=== PATIENT | male | born 1945 | race Caucasian/White ===

== ENCOUNTER 2018-07-16 03:20 | Inpatient (IN) | payer MEDICARE, OTHER ==
[~2018-07-16] VITALS: Ht 167.6 cm; Wt 99.7 kg
[2018-07-16] MEDS ORDERED: ASPI-496 PO (03:39)
[2018-07-16] MEDS ORDERED: METO-93 PO (03:41)
[2018-07-16] MEDS ORDERED: ATOR-2 PO (03:42)
[2018-07-16 04:07] LABS: BASOPHILS # (AUTO) 0.04 x10^3/uL (0-0.1); BASOPHILS % (AUTO) 1 % (0-1); EOSINOPHILS # (AUTO) 0.32 x10^3/uL (0-0.4); EOSINOPHILS % (AUTO) 5 % (1-7); LYMPHOCYTES # (AUTO) 2.46 x10^3/uL (1-3.4); LYMPHOCYTES % (AUTO) 36 % (22-44); MD NO; MEAN CORPUSCULAR HEMOGLOBIN 30.4 pg (27.5-34.5); MEAN CORPUSCULAR HGB CONC 33.5 g/dL (33.2-36.2); MEAN CORPUSCULAR VOLUME 90.8 fL (81-97); MEAN PLATELET VOLUME 8.8 fL (7.4-10.4); MONOCYTES # (AUTO) 0.76 x10^3/uL (0.2-0.8); MONOCYTES % (AUTO) 11 % (2-9); NEUTROPHILS # (AUTO) 3.28 x10^3/uL (1.8-6.8); NEUTROPHILS % (AUTO) 48 % (42-75); PLATELET COUNT 209 x10^3/uL (130-400); RED BLOOD COUNT 4.76 x10^6/uL (4.38-5.82); RED CELL DISTRIBUTION WIDTH 14.7 % (9.4-14.8)
[2018-07-16 04:20] LABS: ALANINE AMINOTRANSFERASE 23 U/L (12-78); ANION GAP 6 mmol/L (5-15); CALCIUM 8.4 mg/dL (8.5-10.1); CHLORIDE 110 mmol/L (98-107); CREATININE 1.17 mg/dL (0.7-1.3)
[2018-07-16 04:25] LABS: ALKALINE PHOSPHATASE 81 U/L (45-117); BILIRUBIN,TOTAL 0.4 mg/dL (0.2-1.0); TOTAL PROTEIN 6.2 g/dL (6.4-8.2); TROPONIN I < 0.015 ng/mL (0.000-0.045)
[2018-07-16] MEDS ORDERED: ONDANSETRON 2MG/ML, 2ML IVPush PRN (05:00)
[2018-07-16] MEDS ORDERED: MORPHINE SULFATE 4 MG/ML, 1ML IVPush PRN (05:00)
[2018-07-16 05:30] VITALS: BP 152/82
[2018-07-16] MEDS ORDERED: NITROGLYCERIN 0.4 MG BOTTLE (25 TABS) SL PRN (05:30)
[2018-07-16] MEDS ORDERED: NITROGLYCERIN 0.4 MG/SPRAY SL PRN (05:30)
[2018-07-16] MEDS ORDERED: BISACODYL 10 MG SUPP PR PRN (05:30)
[2018-07-16] MEDS ORDERED: LABETALOL 5MG/ML, 20ML IVPush PRN (05:30)
[2018-07-16] MEDS ORDERED: ENOXAPARIN 40 MG/0.4 ML SQ SCH (05:30)
[2018-07-16] MEDS ORDERED: morphine SULFATE 10 MG/ML, 1ML IV PRN (05:30)
[2018-07-16] MEDS ORDERED: ACETAMINOPHEN 325 MG TABLET PO PRN (05:30)
[2018-07-16] MEDS ORDERED: morphine SULFATE 10 MG/ML, 1ML IVPush PRN (05:30)
[2018-07-16] MEDS ORDERED: HYDR25TA11 PO (05:39)
[2018-07-16 05:40] VITALS: BP 152/82
[2018-07-16 07:00] LABS: CHOL/HDL RATIO 2.9; LDL/HDL RATIO 1.3 (0.5-3.0)
[2018-07-16 07:43] LABS: TROPONIN I < 0.015 ng/mL (0.000-0.045)
[2018-07-16 08:46] VITALS: BP 133/75
[2018-07-16] MEDS ORDERED: SODIUM CHLORIDE FLUSH 10ML SYR IVF SCH (09:00)
[2018-07-16] MEDS ORDERED: METOPROLOL SUCCINATE 50 MG TAB.ER.24H PO SCH (09:00)
[2018-07-16 10:26] LABS: TROPONIN I < 0.015 ng/mL (0.000-0.045)
[2018-07-16] MEDS ORDERED: REGADENOSON 0.4 MG/5 ML SYRINGE ONE (12:45)
[2018-07-16 15:00] VITALS: BP 138/76
[2018-07-16 20:52] VITALS: BP 121/81
[2018-07-16] MEDS ORDERED: ATORVASTATIN 80 MG TABLET PO SCH (21:00)
[2018-07-17] MEDS ORDERED: ASPIRIN 325 MG TABLET EC PO SCH (06:00)
== END 2018-07-16 23:07 | disposition home or self-care (01) | DRG 305 ==
LOC: ED 04:55 → EDIP 05:01 → 5SO 05:42
PROVIDERS: ADMIT Internal Medicine; ATTEND Internal Medicine
DX: I16.9 Hypertensive crisis, unspecified (principal); R07.9 Chest pain, unspecified; I10 Essential (primary) hypertension; E66.01 Morbid (severe) obesity due to excess calories; E78.5 Hyperlipidemia, unspecified; R61 Generalized hyperhidrosis; E78.00 Pure hypercholesterolemia, unspecified; K21.9 Gastro-esophageal reflux disease without esophagitis; G47.33 Obstructive sleep apnea (adult) (pediatric); Z68.35 Body mass index [BMI] 35.0-35.9, adult; Z82.49 Family history of ischemic heart disease and other diseases of the circulatory system; Z87.891 Personal history of nicotine dependence
CPT/HCPCS: 36415; 71045; 78452; 80053; 80061; 83880; 84484; 85025; 93005; 93017; 99285; G0378; J1650; J2785; A9502; C9898

== ENCOUNTER → 2018-09-25 | Outpatient (CLI) | payer MEDICARE, OTHER ==
[~2018-09-25] MED LIST: ASPI-496 PO; ATOR-2 PO; HYDR25TA11 PO; METO-93 PO
[2018-09-25 16:21] LABS: ANION GAP 6 mmol/L (5-15); CHLORIDE 107 mmol/L (98-107); CREATININE 1.35 mg/dL (0.7-1.3)
== END | disposition home or self-care (01) ==
LOC: CFH 14:52
PROVIDERS: ATTEND Internal Medicine Cardiovascular Disease
DX: I10 Essential (primary) hypertension (principal)
CPT/HCPCS: 36415; 80048

== ENCOUNTER → 2018-10-01 | Outpatient (CLI) | payer MEDICARE, OTHER | END | disposition home or self-care (01) | LOC: CFH 13:35 | PROVIDERS: ATTEND Internal Medicine Cardiovascular Disease | DX: I10 Essential (primary) hypertension (principal); E78.5 Hyperlipidemia, unspecified | CPT/HCPCS: 93306 ==

== ENCOUNTER 2020-08-17 17:31 | Observation (INO) | payer MEDICARE, OTHER ==
[~2020-08-17] VITALS: Ht 167.6 cm; Wt 97.8 kg
[~2020-08-17 17:31] MED LIST changes: +HYDR-826 PO; -HYDR25TA11 PO
--- NOTE | 2020-08-17 18:19 | NUR ---
INTERMITTENT SHARP CHEST PAIN FOR 5 DAYS, WORSE TODAY. ABDOMINAL PAIN AND SILVEIRA.
[2020-08-17] MEDS ORDERED: MAALOX/HYOSCYAMINE/LIDOCAINE 45 ML BTL ONE (18:20)
[2020-08-17] MEDS ORDERED: ONDANSETRON 2MG/ML, 2ML ONE (18:20)
[2020-08-17] MEDS ORDERED: FAMOTIDINE 20 MG/2 ML ONE (18:21)
--- NOTE | 2020-08-17 18:32 | NUR ---
AFTER MEDICATED NOTED ON SEP PT TO XRAY
[2020-08-17 18:39] LABS: BASOPHILS % (AUTO) 1 % (0-1); EOSINOPHILS % (AUTO) 1 % (1-7); LYMPHOCYTES % (AUTO) 23 % (22-44); MEAN CORPUSCULAR HEMOGLOBIN 30.8 pg (27.5-34.5); MEAN PLATELET VOLUME 8.6 fL (7.4-10.4); MONOCYTES % (AUTO) 8 % (2-9); NEUTROPHILS % (AUTO) 68 % (42-75); PLATELET COUNT 271 x10^3/uL (130-400); RED BLOOD COUNT 4.87 x10^6/uL (4.38-5.82); RED CELL DISTRIBUTION WIDTH 13.7 % (9.4-14.8)
[2020-08-17 18:40] LABS: MD NO
[2020-08-17 18:50] LABS: ALBUMIN 3.6 g/dL (3.4-5.0); ANION GAP 8 mmol/L (5-15); CHLORIDE 100 mmol/L (98-107)
[2020-08-17 18:56] LABS: ALANINE AMINOTRANSFERASE 27 U/L (12-78); ALKALINE PHOSPHATASE 78 U/L (45-117); BILIRUBIN,TOTAL 0.5 mg/dL (0.2-1.0); TOTAL PROTEIN 7.2 g/dL (6.4-8.2); TROPONIN I < 0.015 ng/mL (0.000-0.045)
[2020-08-17] MEDS ORDERED: MAALOX/HYOSCYAMINE/LIDOCAINE 45 ML BTL PO ONE (19:00)
[2020-08-17] MEDS ORDERED: FAMOTIDINE 20 MG/2 ML IVPush ONE (19:00)
[2020-08-17] MEDS ORDERED: ONDANSETRON 2MG/ML, 2ML IVPush ONE (19:00)
--- NOTE | 2020-08-17 19:04 | NUR ---
REPORT RECIEVED FROM CAMILLA SRIVASTAVA. PT RESTING IN [facility], ALL MONITORS IN PLACE
[2020-08-17] MEDS ORDERED: MORPHINE SULFATE 4 MG/ML, 1ML ONE (19:16)
[2020-08-17] MEDS ORDERED: PANT20TA4 PO (19:30)
[2020-08-17] MEDS ORDERED: MORPHINE SULFATE 4 MG/ML, 1ML IVPush ONE (19:30)
[2020-08-17] MEDS ORDERED: ATOR-2 PO (19:30)
[2020-08-17] MEDS ORDERED: TOLT1TAB13 PO (19:30)
[2020-08-17] MEDS ORDERED: LISI-420 PO (19:30)
[2020-08-17] MEDS ORDERED: HYDR25TA6 PO (19:31)
[2020-08-17] MEDS ORDERED: ACETAMINOPHEN 325 MG TABLET ONE (20:17)
[2020-08-17] MEDS ORDERED: POTASSIUM CHLORIDE 20 MEQ TAB.ER.PRT ONE (20:17)
[2020-08-17] MEDS ORDERED: PROMETHAZINE 25 MG/ML, 1ML IM PRN (20:30)
[2020-08-17] MEDS ORDERED: ONDANSETRON 2MG/ML, 2ML IVPush PRN (20:30)
[2020-08-17] MEDS ORDERED: morphine SULFATE 10 MG/ML, 1ML IVPush PRN (20:30)
[2020-08-17] MEDS ORDERED: DOCUSATE 100 MG CAPSULE PO PRN (20:30)
[2020-08-17] MEDS ORDERED: OXYcodone IR 5MG TABLET PO PRN (20:30)
[2020-08-17] MEDS ORDERED: ACETAMINOPHEN 325 MG TABLET PO PRN (20:30)
[2020-08-17] MEDS ORDERED: POLYETHYLENE GLYCOL 17 GM PACKET PO PRN (20:30)
[2020-08-17] MEDS ORDERED: NITROGLYCERIN 0.4 MG BOTTLE (25 TABS) SL PRN (20:30)
[2020-08-17] MEDS ORDERED: POTASSIUM CHLORIDE 20 MEQ TAB.ER.PRT PO ONE (20:30)
[2020-08-17] MEDS ORDERED: ONDANSETRON ODT 4 MG PO PRN (20:30)
[2020-08-17] MEDS ORDERED: BISACODYL 10 MG SUPP PR PRN (20:30)
[2020-08-17] MEDS ORDERED: hydrALAzine 20 MG/ML, 1ML IVPush PRN (20:30)
[2020-08-17] MEDS ORDERED: LISINOPRIL 20 MG TABLET PO SCH (21:00)
--- NOTE | 2020-08-17 21:03 | NUR ---
REPORT GIVEN TO CAMILLA RAMIREZ
[2020-08-17] MEDS: PANTOPRAZOLE 40MG TABLET PO SCH (22:29)
[2020-08-17] MEDS: HEPARIN 5,000 UNITS/ML, 1ML SQ SCH (22:30)
[2020-08-17] MEDS: HYDROCHLOROTHIAZIDE 25 MG TABLET PO SCH (22:30)
[2020-08-17] MEDS: TOLTERODINE 2MG TABLET PO SCH (22:30)
[2020-08-18 00:05] LABS: TROPONIN I < 0.015 ng/mL (0.000-0.045)
[2020-08-18 00:44] VITALS: BP 147/82
[2020-08-18 02:22] LABS: BASOPHILS % (AUTO) 1 % (0-1); EOSINOPHILS % (AUTO) 2 % (1-7); LYMPHOCYTES % (AUTO) 34 % (22-44); MEAN CORPUSCULAR HEMOGLOBIN 30.3 pg (27.5-34.5); MEAN CORPUSCULAR HGB CONC 33.6 g/dL (33.2-36.2); MEAN PLATELET VOLUME 8.3 fL (7.4-10.4); MONOCYTES % (AUTO) 9 % (2-9); NEUTROPHILS % (AUTO) 55 % (42-75); PLATELET COUNT 259 x10^3/uL (130-400); RED BLOOD COUNT 4.68 x10^6/uL (4.38-5.82); RED CELL DISTRIBUTION WIDTH 13.7 % (9.4-14.8)
[2020-08-18 02:23] LABS: MD NO
[2020-08-18 02:30] LABS: ALANINE AMINOTRANSFERASE 24 U/L (12-78); ALBUMIN 3.3 g/dL (3.4-5.0); ANION GAP 5 mmol/L (5-15); CALCIUM 8.8 mg/dL (8.5-10.1); CHLORIDE 101 mmol/L (98-107); CREATININE 1.16 mg/dL (0.7-1.3)
[2020-08-18 02:35] LABS: TROPONIN I < 0.015 ng/mL (0.000-0.045)
[2020-08-18 02:39] LABS: ALKALINE PHOSPHATASE 64 U/L (45-117); BILIRUBIN,TOTAL 0.6 mg/dL (0.2-1.0); CHOL/HDL RATIO 2.8; CHOLESTEROL, TOTAL 115 mg/dL (140-239); HDL CHOL % 36 % (26-37); HDL CHOLESTEROL (DIRECT) 41 mg/dL (40-60); LDL CHOLESTEROL,CALCULATED 61 mg/dL (54-169); LDL/HDL RATIO 1.5 (0.5-3.0); TOTAL PROTEIN 6.7 g/dL (6.4-8.2); TRIGLYCERIDES 66 mg/dL (50-200); VLDL CHOLESTEROL 13 mg/dL (0-25)
[2020-08-18] MEDS ORDERED: SODIUM CHLORIDE 0.9% 1,000 ML IV SCH (05:00)
[2020-08-18] MEDS ORDERED: ASPIRIN 325 MG TABLET EC PO SCH (06:00)
[2020-08-18] MEDS: HEPARIN 5,000 UNITS/ML, 1ML SQ SCH ×2 (06:37→14:48)
[2020-08-18 08:06] VITALS: BP 130/72
[2020-08-18] MEDS: HYDROCHLOROTHIAZIDE 25 MG TABLET PO SCH (08:19)
[2020-08-18] MEDS: PANTOPRAZOLE 40MG TABLET PO SCH (08:19)
[2020-08-18] MEDS ORDERED: REGADENOSON 0.4 MG/5 ML SYRINGE ONE (08:21)
[2020-08-18] MEDS ORDERED: METOPROLOL SUCCINATE 50 MG TAB.ER.24H PO SCH (09:00)
[2020-08-18] MEDS ORDERED: ATORVASTATIN 80 MG TABLET PO SCH (09:00)
[2020-08-18] MEDS: TOLTERODINE 2MG TABLET PO SCH (11:37)
[2020-08-18 13:58] VITALS: BP 128/75
[2020-08-18] MEDS ORDERED: MAGNESIUM HYDROXIDE 8%, 30ML UDC PO SCH (14:30)
[2020-08-18] MEDS ORDERED: SENN-211 PO (14:54)
[2020-08-18] MEDS ORDERED: SENNA/DOCUSATE TABLET PO SCH (21:00)
== END 2020-08-18 16:00 | disposition home or self-care (01) ==
LOC: ED 18:34 → EDIP 20:05 → 5SO 21:13 → DCLOUNGE 08-18 15:49
PROVIDERS: ADMIT Internal Medicine; ATTEND Hospitalist
DX: R07.89 Other chest pain (principal); K21.9 Gastro-esophageal reflux disease without esophagitis; I10 Essential (primary) hypertension; E78.5 Hyperlipidemia, unspecified; G47.33 Obstructive sleep apnea (adult) (pediatric); R10.9 Unspecified abdominal pain; I34.0 Nonrheumatic mitral (valve) insufficiency; K59.00 Constipation, unspecified; K76.89 Other specified diseases of liver; N28.1 Cyst of kidney, acquired; Z79.82 Long term (current) use of aspirin; Z79.899 Other long term (current) drug therapy; Z87.891 Personal history of nicotine dependence; Z91.19 Patient's noncompliance with other medical treatment and regimen
CPT/HCPCS: 36415; 74022; 74176; 78452; 80053; 80061; 83036; 83735; 84443; 84484; 85025; 93005; 93017; 93306; 96361; 96372; 96374; 96375; 99285; A9502; G0378; J1644; J2270; J2405; J2785; J7030; Q0177; 93015

== ENCOUNTER 2021-03-02 12:04 | Inpatient (IN) | payer MEDICARE, OTHER ==
[~2021-03-02] VITALS: Ht 167.6 cm; Wt 89.5 kg
[~2021-03-02 12:04] MED LIST changes: +HYDR25TA6 PO; +LISI20TA21 PO; +PANT20TA4 PO; +SENN-211 PO; +TOLT1TAB13 PO
--- NOTE | 2021-03-02 12:11 | NUR ---
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
--- NOTE | 2021-03-02 12:43 | NUR ---
PT WITH COMPLAINTS OF: SENT BY SHERI VELARDE DUE TO INCREASE ANXIETY AND CONFUSION PLACEMENT ISSUES PASSED RECENTLY VACCINATED FOR COVID-19 PT WITH STEADY GAIT TO BED. SON AT BEDSIDE. SON EXPRESSES CONCERNS OF FATHERS WELL BEING AND RECENT DECLINE OF FATHERS MENTION AND INCREASE IN AGIATION AND ANXIETY. PT POSTIONED TO COMFORT, ATTACHED TO MONITORS. VSS. RYAN.
--- NOTE | 2021-03-02 13:10 | NUR ---
DR. LESLIE TO BEDSIDE.
[2021-03-02 13:42] LABS: MICROSCOPIC INDICATED
--- NOTE | 2021-03-02 13:43 | NUR ---
PT BACK FROM CT. VSS. RYAN
--- NOTE | 2021-03-02 13:59 | NUR ---
PREMA MANTILLA FERRY PILOT TO BEDSIDE FOR EVALUATION.
[2021-03-02 14:06] LABS: BASOPHILS % (AUTO) 1 % (0-1); EOSINOPHILS % (AUTO) 0 % (1-7); LYMPHOCYTES % (AUTO) 16 % (22-44); MEAN CORPUSCULAR HEMOGLOBIN 30.4 pg (27.5-34.5); MEAN CORPUSCULAR HGB CONC 35.5 g/dL (33.2-36.2); MEAN PLATELET VOLUME 7.8 fL (7.4-10.4); MONOCYTES % (AUTO) 9 % (2-9); NEUTROPHILS % (AUTO) 75 % (42-75); PLATELET COUNT 283 x10^3/uL (130-400); RED BLOOD COUNT 4.75 x10^6/uL (4.38-5.82); RED CELL DISTRIBUTION WIDTH 14.1 % (9.4-14.8)
[2021-03-02 14:14] LABS: ALANINE AMINOTRANSFERASE 81 U/L (12-78); ALBUMIN 3.6 g/dL (3.4-5.0); CALCIUM 9.6 mg/dL (8.5-10.1)
[2021-03-02 14:17] LABS: ALKALINE PHOSPHATASE 80 U/L (45-117); BILIRUBIN,TOTAL 1.3 mg/dL (0.2-1.0); CREATININE 1.13 mg/dL (0.7-1.3); TOTAL PROTEIN 7.1 g/dL (6.4-8.2)
[2021-03-02 14:21] LABS: ANION GAP 9 mmol/L (5-15); CHLORIDE 76 mmol/L (98-107)
[2021-03-02] MEDS ORDERED: POTASSIUM CHLORIDE 20 MEQ TAB.ER.PRT PO ONE (15:00)
[2021-03-02] MEDS ORDERED: SODIUM CHLORIDE 0.9% 1,000 ML IV ONE ×2 (15:00→15:30)
--- NOTE | 2021-03-02 15:06 | NUR ---
DR. HARDY TO BEDSIDE FOR EVALUATION
[2021-03-02] MEDS ORDERED: POTASSIUM CHLORIDE 20 MEQ TAB.ER.PRT ONE (15:14)
[2021-03-02] MEDS: BUSPIRONE 5 MG TABLET PO SCH ×2 (15:23→20:53)
[2021-03-02] MEDS ORDERED: SODIUM CHLORIDE FLUSH 10ML SYR IVF PRN (15:30)
[2021-03-02] MEDS ORDERED: LORazepam 0.5MG TABLET PO PRN (15:30)
[2021-03-02] MEDS ORDERED: NS + 20MEQ KCL 1,000 ML IV SCH (16:00)
[2021-03-02] MEDS ORDERED: hydrALAzine 20 MG/ML, 1ML IVPush PRN (16:00)
--- NOTE | 2021-03-02 16:00 | NUR ---
REPORT CALLED TO TARA CARL PT RESTING IN BED WITH SEZIURES Addendum: 03/02/21 at 1604 by MAGDA REPORT CALLED TO TRAA CARL PT RESTING IN BED WITH SEZIURES PRECAUTIONS IN PLACE
[2021-03-02 16:17] LABS: ANION GAP 11 mmol/L (5-15); CALCIUM 8.9 mg/dL (8.5-10.1); CHLORIDE 78 mmol/L (98-107); CREATININE 1.07 mg/dL (0.7-1.3)
[2021-03-02 17:19] VITALS: BP 164/66
[2021-03-02] MEDS ORDERED: ALPR0.5T PO (17:32)
[2021-03-02] MEDS ORDERED: BUSP7.5T5 PO (17:32)
[2021-03-02] MEDS ORDERED: AMLO-211 PO (17:32)
[2021-03-02] MEDS: ENOXAPARIN 40 MG/0.4 ML SQ SCH (17:39)
[2021-03-02] MEDS: PANTOPRAZOLE 40 MG IV IVPush SCH (17:39)
[2021-03-02] MEDS ORDERED: METOPROLOL TARTRATE 50 MG TAB PO SCH (18:00)
[2021-03-02] MEDS: ACETAMINOPHEN 325 MG TABLET PO PRN ×2 (19:39→23:24)
[2021-03-02] MEDS: NS + 20MEQ KCL 1,000 ML IV SCH (19:39)
[2021-03-02 20:19] LABS: ANION GAP 10 mmol/L (5-15); CALCIUM 8.9 mg/dL (8.5-10.1); CHLORIDE 79 mmol/L (98-107); CREATININE 0.98 mg/dL (0.7-1.3)
[2021-03-02] MEDS: ATORVASTATIN 80 MG TABLET PO SCH (20:53)
[2021-03-02] MEDS: TOLTERODINE 2MG TABLET PO SCH (20:53)
[2021-03-03 00:46] LABS: CHLORIDE 83 mmol/L (98-107)
[2021-03-03 00:50] LABS: ANION GAP 11 mmol/L (5-15); CALCIUM 9.2 mg/dL (8.5-10.1); CREATININE 1.12 mg/dL (0.7-1.3)
[2021-03-03] MEDS: NS + 20MEQ KCL 1,000 ML IV SCH (01:00)
[2021-03-03] MEDS ORDERED: POTASSIUM CHLORIDE 20 MEQ TAB.ER.PRT ONE (01:08)
[2021-03-03] MEDS ORDERED: POTASSIUM CHLORIDE 20 MEQ TAB.ER.PRT PO ONE ×2 (01:30→13:00)
[2021-03-03 04:46] LABS: BASOPHILS % (AUTO) 0 % (0-1); EOSINOPHILS % (AUTO) 1 % (1-7); LYMPHOCYTES % (AUTO) 35 % (22-44); MEAN CORPUSCULAR HEMOGLOBIN 30.8 pg (27.5-34.5); MEAN CORPUSCULAR HGB CONC 35.6 g/dL (33.2-36.2); MEAN PLATELET VOLUME 8.3 fL (7.4-10.4); MONOCYTES % (AUTO) 13 % (2-9); NEUTROPHILS % (AUTO) 51 % (42-75); PLATELET COUNT 267 x10^3/uL (130-400); RED BLOOD COUNT 4.85 x10^6/uL (4.38-5.82); RED CELL DISTRIBUTION WIDTH 14.2 % (9.4-14.8)
[2021-03-03 04:51] LABS: ALANINE AMINOTRANSFERASE 89 U/L (12-78); ALBUMIN 3.2 g/dL (3.4-5.0); ANION GAP 9 mmol/L (5-15); CALCIUM 9.2 mg/dL (8.5-10.1); CHLORIDE 85 mmol/L (98-107)
[2021-03-03 04:53] LABS: ALKALINE PHOSPHATASE 73 U/L (45-117); BILIRUBIN,TOTAL 1.1 mg/dL (0.2-1.0); CREATININE 1.04 mg/dL (0.7-1.3); TOTAL PROTEIN 6.6 g/dL (6.4-8.2)
[2021-03-03 08:02] LABS: ANION GAP 10 mmol/L (5-15); CALCIUM 8.9 mg/dL (8.5-10.1); CHLORIDE 88 mmol/L (98-107); CREATININE 0.97 mg/dL (0.7-1.3)
[2021-03-03] MEDS: BUSPIRONE 5 MG TABLET PO SCH ×3 (09:19→21:09)
[2021-03-03] MEDS: SENNA/DOCUSATE TABLET PO SCH (09:19)
[2021-03-03] MEDS: LISINOPRIL 20 MG TABLET PO SCH (09:19)
[2021-03-03] MEDS: AMLODIPINE 10 MG TAB PO SCH (09:19)
[2021-03-03] MEDS: ASPIRIN 81 MG TABLET CHEW PO SCH (09:19)
[2021-03-03] MEDS: PANTOPRAZOLE 40 MG IV IVPush SCH (09:20)
[2021-03-03] MEDS: TOLTERODINE 2MG TABLET PO SCH ×2 (09:21→21:09)
[2021-03-03] MEDS: ONDANSETRON 2MG/ML, 2ML IVPush PRN (10:28)
[2021-03-03 11:52] LABS: ANION GAP 7 mmol/L (5-15); CALCIUM 8.7 mg/dL (8.5-10.1); CHLORIDE 90 mmol/L (98-107); CREATININE 1.03 mg/dL (0.7-1.3)
[2021-03-03] MEDS ORDERED: POLYETHYLENE GLYCOL 17 GM PACKET PO PRN (15:00)
[2021-03-03 15:29] LABS: CALCIUM 9.1 mg/dL (8.5-10.1); CHLORIDE 87 mmol/L (98-107)
[2021-03-03 15:30] LABS: CREATININE 1.16 mg/dL (0.7-1.3)
[2021-03-03 15:37] LABS: ANION GAP 9 mmol/L (5-15)
[2021-03-03] MEDS ORDERED: NS + 20MEQ KCL 1,000 ML IV SCH (16:00)
[2021-03-03] MEDS: ENOXAPARIN 40 MG/0.4 ML SQ SCH (17:24)
[2021-03-03 19:33] LABS: ANION GAP 9 mmol/L (5-15); CALCIUM 8.6 mg/dL (8.5-10.1); CHLORIDE 89 mmol/L (98-107); CREATININE 0.99 mg/dL (0.7-1.3)
[2021-03-03] MEDS: ACETAMINOPHEN 325 MG TABLET PO PRN (19:36)
[2021-03-03 19:59] VITALS: BP 124/74
[2021-03-03] MEDS: ATORVASTATIN 80 MG TABLET PO SCH (21:09)
[2021-03-03 21:56] LABS: CHLORIDE 88 mmol/L (98-107)
[2021-03-03 21:57] LABS: ANION GAP 10 mmol/L (5-15); CALCIUM 8.8 mg/dL (8.5-10.1); CREATININE 1.05 mg/dL (0.7-1.3)
[2021-03-04 00:30] VITALS: BP 130/73
[2021-03-04] MEDS: NS + 20MEQ KCL 1,000 ML IV SCH (01:06)
[2021-03-04] MEDS: ACETAMINOPHEN 325 MG TABLET PO PRN ×2 (06:12→18:24)
[2021-03-04 06:37] LABS: ANION GAP 6 mmol/L (5-15); CHLORIDE 93 mmol/L (98-107); CREATININE 0.96 mg/dL (0.7-1.3)
[2021-03-04 06:50] VITALS: BP 130/75
[2021-03-04] MEDS: SENNA/DOCUSATE TABLET PO SCH (08:13)
[2021-03-04] MEDS: BUSPIRONE 5 MG TABLET PO SCH ×3 (08:13→20:37)
[2021-03-04] MEDS: ASPIRIN 81 MG TABLET CHEW PO SCH (08:13)
[2021-03-04] MEDS: PANTOPRAZOLE 40 MG IV IVPush SCH (08:14)
[2021-03-04] MEDS: AMLODIPINE 10 MG TAB PO SCH (08:14)
[2021-03-04] MEDS: LISINOPRIL 20 MG TABLET PO SCH (08:14)
[2021-03-04] MEDS: TOLTERODINE 2MG TABLET PO SCH ×2 (08:17→20:37)
[2021-03-04] MEDS: ONDANSETRON 2MG/ML, 2ML IVPush PRN ×2 (08:17→16:17)
[2021-03-04] MEDS ORDERED: SODIUM BICARBONATE 650 MG TABLET PO SCH (09:00)
[2021-03-04] MEDS: POLYETHYLENE GLYCOL 17 GM PACKET PO SCH ×2 (11:39→20:37)
[2021-03-04] MEDS: SODIUM CHLORIDE 1 GM TABLET PO SCH ×3 (13:30→20:37)
[2021-03-04 14:51] VITALS: BP 125/76
[2021-03-04] MEDS: PANTOPRAZOLE 40MG TABLET PO SCH (16:14)
[2021-03-04] MEDS: ENOXAPARIN 40 MG/0.4 ML SQ SCH (16:14)
[2021-03-04 18:20] VITALS: BP 122/73
[2021-03-04 19:56] VITALS: BP 107/72
[2021-03-04] MEDS: ATORVASTATIN 80 MG TABLET PO SCH (20:37)
[2021-03-04] MEDS: MELATONIN 5 MG TABLET PO PRN (21:05)
[2021-03-05] VITALS: BP 149/80
[2021-03-05] MEDS: ONDANSETRON 2MG/ML, 2ML IVPush PRN (05:49)
[2021-03-05] MEDS: PANTOPRAZOLE 40MG TABLET PO SCH (05:49)
[2021-03-05 05:56] LABS: ANION GAP 5 mmol/L (5-15); CALCIUM 8.3 mg/dL (8.5-10.1); CHLORIDE 99 mmol/L (98-107)
[2021-03-05 05:58] LABS: CREATININE 0.84 mg/dL (0.7-1.3)
[2021-03-05] MEDS: BUSPIRONE 5 MG TABLET PO SCH ×3 (08:26→20:11)
[2021-03-05] MEDS: SENNA/DOCUSATE TABLET PO SCH (08:26)
[2021-03-05] MEDS: TOLTERODINE 2MG TABLET PO SCH ×2 (08:26→20:11)
[2021-03-05] MEDS: LISINOPRIL 20 MG TABLET PO SCH (08:26)
[2021-03-05] MEDS: ASPIRIN 81 MG TABLET CHEW PO SCH (08:26)
[2021-03-05] MEDS: SODIUM CHLORIDE 1 GM TABLET PO SCH ×2 (08:26→20:11)
[2021-03-05] MEDS: AMLODIPINE 10 MG TAB PO SCH (08:26)
[2021-03-05] MEDS: POLYETHYLENE GLYCOL 17 GM PACKET PO SCH ×2 (08:26→20:11)
[2021-03-05 09:05] VITALS: BP 111/72
[2021-03-05] MEDS: ONDANSETRON ODT 4 MG PO SCH ×2 (11:08→16:20)
[2021-03-05 14:10] VITALS: BP 107/64
[2021-03-05] MEDS: ENOXAPARIN 40 MG/0.4 ML SQ SCH (16:20)
[2021-03-05 19:24] VITALS: BP 136/80
[2021-03-05] MEDS: ATORVASTATIN 80 MG TABLET PO SCH (20:11)
[2021-03-05] MEDS: MELATONIN 5 MG TABLET PO PRN (20:11)
[2021-03-06 01:39] VITALS: BP 148/84
[2021-03-06] MEDS: PANTOPRAZOLE 40MG TABLET PO SCH (05:27)
[2021-03-06 05:29] LABS: CHLORIDE 101 mmol/L (98-107)
[2021-03-06 05:34] LABS: ANION GAP 5 mmol/L (5-15); CALCIUM 8.7 mg/dL (8.5-10.1); CREATININE 0.89 mg/dL (0.7-1.3)
[2021-03-06 07:22] VITALS: BP 129/75
[2021-03-06] MEDS: ASPIRIN 81 MG TABLET CHEW PO SCH (08:16)
[2021-03-06] MEDS: LISINOPRIL 20 MG TABLET PO SCH (08:16)
[2021-03-06] MEDS: ONDANSETRON ODT 4 MG PO SCH (08:16)
[2021-03-06] MEDS: AMLODIPINE 10 MG TAB PO SCH (08:16)
[2021-03-06] MEDS: TOLTERODINE 2MG TABLET PO SCH (08:17)
[2021-03-06] MEDS: BUSPIRONE 5 MG TABLET PO SCH (08:17)
[2021-03-06] MEDS: SODIUM CHLORIDE 1 GM TABLET PO SCH (08:17)
[2021-03-06] MEDS: SENNA/DOCUSATE TABLET PO SCH (08:17)
[2021-03-06] MEDS: POLYETHYLENE GLYCOL 17 GM PACKET PO SCH (08:17)
[2021-03-06] MEDS ORDERED: BUSP10TA PO (10:02)
[2021-03-06] MEDS ORDERED: SODI1TAB PO (10:02)
[2021-03-06 12:02] VITALS: BP 132/79
== END 2021-03-06 12:20 | disposition home or self-care (01) | DRG 640 ==
LOC: ED 12:17 → CCU 15:01 → 3N 03-03 11:58
PROVIDERS: ADMIT Hospitalist; ATTEND Hospitalist
DX: E87.1 Hypo-osmolality and hyponatremia (principal); G93.41 Metabolic encephalopathy; I50.32 Chronic diastolic (congestive) heart failure; K75.81 Nonalcoholic steatohepatitis (NASH); E78.5 Hyperlipidemia, unspecified; F03.90 Unspecified dementia, unspecified severity, without behavioral disturbance, psychotic disturbance, mood disturbance, and anxiety; E87.6 Hypokalemia; F41.1 Generalized anxiety disorder; F43.23 Adjustment disorder with mixed anxiety and depressed mood; G47.33 Obstructive sleep apnea (adult) (pediatric); I11.0 Hypertensive heart disease with heart failure; I25.10 Atherosclerotic heart disease of native coronary artery without angina pectoris; J32.0 Chronic maxillary sinusitis; K59.09 Other constipation; N40.0 Benign prostatic hyperplasia without lower urinary tract symptoms; K21.9 Gastro-esophageal reflux disease without esophagitis; T50.2X5A Adverse effect of carbonic-anhydrase inhibitors, benzothiadiazides and other diuretics, initial encounter; Z87.891 Personal history of nicotine dependence
CPT/HCPCS: 36415; 70450; 70551; 71045; 76700; 80048; 80053; 81001; 83690; 83735; 83935; 84100; 84443; 85025; 87081; 87086; 93005; 96374; G0378; J1650; J2405; J3480; Q0162; 92523-GN; C9113; J7030